=== PATIENT | female | born 1955 | race Caucasian/White ===

== ENCOUNTER 2025-09-24 15:36 | Emergency (ER) | payer MEDICARE, SELFPAY ==
[2025-09-24 15:52] VITALS: BP 147/94; PULSE 128; RESP 22; TEMP 37.1; O2SAT 96; BMI 27.5
--- NOTE | 2025-09-24 16:25 | ED_ITS ---
HPI - General Adult General Chief complaint: Unspecified Complaint, Adult Stated complaint: Right side of face is swollen Time Seen by Provider: 09/24/25 16:13 History of Present Illness HPI narrative: This 70-year-old female comes in reporting right-sided facial swelling over the past day. She stated that she had dental pain in the right upper side last week but this has resolved. She does have poor dentition and is a smoker. She states that she does not have any teeth in the right upper row. Related Data Home Medications ?Medication ?Instructions ?Recorded ?Confirmed aspirin 81 mg tablet,delayed 81 mg PO DAILY 09/24/25 1 11/24/24 release (Adult Aspirin Regimen) Previous Rx's ?Medication ?Instructions ?Recorded amoxicillin 875 mg-potassium 1 tab PO BID #14 tabs clavulanate 125 mg tablet ketorolac 10 mg tablet 10 mg PO TID 5 days #15 tabs 09/24/25 Allergies Allergy/AdvReac Type Severity Reaction Status Date / Time No Known Drug Allergies Allergy Verified 09/24/25 15:52 Review of Systems Status of ROS: Reports: 10 or more systems reviewed and unremarkable except as noted in History and below Narrative: Constitutional: No fevers, no weight gain or loss. Eyes: No discharge. No vision changes. HENT: No congestion, no sore throat, no ear pain. Cardiovascular: No chest pain, no palpitations. Respiratory: No shortness of breath, no wheezes, no cough. Gastrointestinal: No abdominal pain, no vomiting, no diarrhea. Genitourinary: No dysuria, no hematuria. Musculoskeletal: Normal range of motion. Skin: No rashes, no pruritis. Neurological: No dizziness, weakness, sensory change, speech change. Endo/Heme/Allergies: No bruising or bleeding. No polydipsia. Pysch: no suicidality, no anxiety, no insomnia. All other systems reviewed and are negative. PFSH PFSH Social History Smoking Status: Current every day smoker How often do you have a drink containing alcohol: 2-4 times a month AUDIT-C Alcohol total score: 2 Non-prescribed substance use: denies use Exam Narrative: Exam Narrative: Constitutional: Well-developed, well-nourished, no acute distress. HEENT: Normocephalic, atraumatic. Oropharynx shows several missing teeth and other teeth that have dental caries. There is no external sign of abscess. She has right-sided facial swelling without any palpable abscess. Neck: Normal range of motion. Nontender. Supple. Heart: Intact distal pulses. Lungs: No chest discomfort. No wheezes, rhonchi, or rales. Abdomen: Nontender. Back: Normal range of motion. Extremities: Normal range of motion. No injury. Skin: Intact. No rash. Warm. No erythema or pallor. Neurologic: No altered sensation. No weakness. Alert and oriented. Psychiatric: No suicidality. No anxiety or depression. No insomnia. Nursing notes and vitals signs are reviewed. Const: Vital Signs, click to edit/add: Vital Signs - 24 hr 09/24/25 15:52 Temperature 98.8 F Pulse Rate [Right Pulse Oximeter] 128 H Respiratory Rate 22 Blood Pressure [Ri ght Upper Arm] 147/94 H Pulse Oximetry 96 Oxygen Delivery Me thod Room Air Course Vital Signs Vital signs: Initial Vital Signs Temperature 98.8 F 09/24/25 15:52 Temperature Source Temporal Artery Scan 09/24/25 15:52 Pulse Rate 128 H 09/24/25 15:52 Respiratory Rate 22 09/24/25 15:52 Blood Pressure 147/94 H 09/24/25 15:52 Blood Pressure Mean 111 H 09/24/25 15:52 Blood Pressure Position Sitting 09/24/25 15:52 Pulse Oximetry 96 09/24/25 15:52 Oxygen Delivery Method Room Air 09/24/25 15:52 Vital Signs Temperature 98.8 F 09/24/25 15:52 Pulse Rate 128 H 09/24/25 15:52 Respiratory Rate 22 09/24/25 15:52 Blood Pressure 147/94 H 09/24/25 15:52 Pulse Oximetry 96 09/24/25 15:52 Oxygen Delivery Method Room Air 09/24/25 15:52 Temperature 98.8 F 09/24/25 15:52 Pulse Rate 128 H 09/24/25 15:52 Respiratory Rate 22 09/24/25 15:52 Blood Pressure 147/94 H 09/24/25 15:52 Pulse Oximetry 96 09/24/25 15:52 Oxygen Delivery Method Room Air 09/24/25 15:52 Medical Decision Making MDM Narrative Medical decision making narrative: This patient comes in with right-sided facial swelling associated with some dental pain. She states that she does not have a dentist but will make arrangements to go for further checkup. I did provide prescription for Augmentin and Toradol. Discharge Plan Discharge Clinical Impression: Abscess, dental Patient Disposition: Home, Self-Care Condition: Stable Additional Instructions: Take medication as prescribed. Follow up for with dentist for further diagnosis and management. Prescriptions: New ketorolac 10 mg tablet 10 mg PO TID 5 Days Qty: 15 0RF amoxicillin-pot clavulanate 875-125 mg tablet 1 tab PO BID Qty: 14 0RF No Action aspirin [Adult Aspirin Regimen] 81 mg tablet,delayed release (DR/EC) 81 mg PO DAILY Stand Alone Forms: [employer] Info Instructions
== END 2025-09-24 16:41 | disposition home or self-care (01) ==
PROVIDERS: Emergency Provider Emergency Medicine Emergency Medical Services
DX: K04.7 Periapical abscess without sinus (principal)
CPT/HCPCS: 99283; 99284